=== PATIENT | female | born 1985 | race Caucasian/White ===

== ENCOUNTER 2020-02-18 21:01 | Emergency (ER) | payer BC ==
[~2020-02-18] VITALS: Ht 167.6 cm; Wt 100.0 kg
[~2020-02-18 21:01] MED LIST: LIDOcaine 1% W/epiNEPHrine 1:100,000 20ml vial ONE
[2020-02-18 21:07] VITALS: BP 139/97
[2020-02-18] MEDS ORDERED: bacitracin 15gm ointment TP ONE (22:25)
[2020-02-18] MEDS ORDERED: TETanus/Pertussis (Acell)/Diphther VAC/PF (Tdap-Adult) 0.5ml syringe IMVAC ONE (22:25)
== END 2020-02-18 23:22 | disposition home or self-care (01) ==
LOC: ER 21:02
DX: S01.511A Laceration without foreign body of lip, initial encounter (principal); W22.8XXA Striking against or struck by other objects, initial encounter; Y93.89 Activity, other specified; Y92.89 Other specified places as the place of occurrence of the external cause; Y99.8 Other external cause status
CPT/HCPCS: 12011; 40650; 90471; 90715; 99283; 99284

== ENCOUNTER 2022-01-20 09:29 | Outpatient (CLI) | payer BC | END 2022-01-20 23:59 | disposition home or self-care (01) | LOC: RAD 09:29 | PROVIDERS: ATTEND Family Medicine | DX: K22.2 Esophageal obstruction (principal); K44.9 Diaphragmatic hernia without obstruction or gangrene; R13.10 Dysphagia, unspecified | CPT/HCPCS: 74220 ==